=== PATIENT | male | born 1985 | race African-American/Black ===

== ENCOUNTER 2023-01-10 08:44 | Emergency (ER) | payer OTHER ==
[2023-01-10 08:47] VITALS: BMI 24.4
[2023-01-10 09:36] LABS: BASO % 0.4 % (0-2.0); EOS % 0.6 % (0-4.5); HEMATOCRIT 47.8 % (35.4-49); HEMOGLOBIN 16.9 GM/dL (11.7-16.9); LYMPH % 58.6 % (8-40); MCH 28.1 pg (25.7-33.7); MCHC 35.2 g/dl (32.0-35.9); MEAN CELL VOLUME 79.8 fl (80-96); MEAN PLT VOLUME 9.8 fl (7.5-11.1); MONO % 6.2 % (3.8-10.2); NEUT % 34.2 % (42.8-82.8); PLATELET COUNT 154 10^3/uL (134-434); RDW 14.3 % (11.9-15.9); WHITE BLOOD COUNT 3.9 K/mm3 (4.0-10.0)
[2023-01-10 09:42] LABS: POTASSIUM 3.6 mmol/L (3.5-5.1)
[2023-01-10 09:45] LABS: ALBUMIN 4.1 g/dl (3.4-5.0); CALCIUM 9.1 mg/dL (8.5-10.1)
[2023-01-10 09:46] LABS: BLOOD UREA NITROGEN 9.1 mg/dL (7-18)
[2023-01-10 09:50] LABS: BILIRUBIN,TOTAL 1.2 mg/dL (0.2-1); TOT PROT 7.4 g/dl (6.4-8.2)
[2023-01-10 11:04] VITALS: BP 129/95; PULSE 73; RESP 16; TEMP 98.2
== END 2023-01-10 11:08 | disposition home or self-care (01) ==
LOC: JER 08:44
DX: R07.89 Other chest pain (principal)
CPT/HCPCS: 36415; 71045-TC-FY; 80053; 84484; 85025; 93005; 93010; 99285-25